=== PATIENT | male | born 1950 | race Caucasian/White ===

== ENCOUNTER 2016-10-12 08:37 | Emergency (ER) | payer MEDICARE, BC ==
--- NOTE | 2016-10-12 08:53 | ERNOTE ---
Back Pain ER HPI Presenting Symptoms: injury/pain to back Time Seen by Provider: 10/12/16 08:48 Source: patient Exam Limitations: no limitations Allergies/Adverse Reactions: Allergies No Known Allergies Allergy (Verified 10/12/16 09:08) Home Medications: HOME MEDICATIONS Acetaminophen [Tylenol] 1,300 mg PO BID 10/01/14 [Last Taken Unknown] Aspirin 325 mg PO DAILY 10/01/14 [Last Taken 10/12/16 0745] Diltiazem HCl [Cardizem Cd] 240 mg PO DAILY 10/01/14 [Last Taken 10/12/16 0745] traMADol HCL [Ultram] 50 mg PO QID PRN 10/01/14 [Last Taken 10/11/16] Cholecalciferol (Vitamin D3) [Vitamin D3] 2,000 unit PO DAILY 10/12/16 [Last Taken Unknown] Diazepam [Valium] 5 mg PO BID 10/12/16 [Last Taken 10/12/16 0200] Fenofibrate [Lofibra] 160 mg PO DAILY 10/12/16 [Last Taken Unknown] Methylprednisolone [Medrol Dosepak] 4 mg PO DAILY #21 tab.ds.pk 10/12/16 [Last Taken Unknown] Multivitamin [One Daily Essential] 1 each PO DAILY 10/12/16 [Last Taken Unknown] Narrative: back pain with left leg radiation x 1 week Timing: Reports: getting worse Quality/Severity: Reports: moderate Location of pain: Reports: lower back, radiating to lf thigh/leg Activities at Onset: Reports: none Recent Injury?: Reports: no Possible Precipitating Factor: Reports: none Modifying Factors - (Improves): Reports: supine position Modifying Factors - (Worsens): Reports: upright position, movement flexion Associated Symptoms: Denies: constipation/incontinence Review of Systems - Review of Systems Constitutional: Present: no symptoms reported EYE: Present: no symptoms reported ENT: Present: no symptoms reported Respiratory: Absent: shortness of breath Cardiology: Absent: chest pain Gastrointestinal/Abdominal: Absent: nausea, vomiting Genitourinary: Present: dysuria, other - no incontenence or retention Musculoskeletal: Present: back pain, muscle pain - left leg, joint pain - had knee pain 2 weeks ago and had joint injection Skin: Present: no symptoms reported Neurological: Absent: weakness, numbness, tingling Endocrine: Present: no symptoms reported Hematologic/Lymphatic: Present: no symptoms reported Psych: Present: no symptoms reported - Patient's Past Medical History Patient History - Medical: Other - back pain Patient History - Cardiac/Respiratory: Hypertension, Hyperlipidemia Patient History - Surgical Procedures: Back Surgery - L5-S1 fusion - Family History Father Family History - Medical: Family History - Cancer: Leukemia M other Family History - Medical: , Diabetes Type 2 Insulin Dependent Family History - Cardiac/Respiratory: Cardiac Arrest, Myocardial Infarction Physical Exam - Physical Exam General Appearance: Present: wd/wn, alert, mild distress Eye Exam: Normal inspection: bilateral Neck: Present: normal inspection, nontender, supple Respiratory: Present: no respiratory distress, no accessory muscle use Back Exam: Present: muscle spasm - LEFT, other - Left SI tenderness mild. Absent: vertebral tenderness Extremity Exam: Present: normal inspection, no edema Neurological Exam: Present: alert, oriented, normal mood/affect, no motor/ sensory deficits, other - SLR neg bilateral. Skin Exam: Present: normal color, warm/dry ED Progress - Results and Orders Patient's Lab Results:: I have reviewed the patient's lab results. Results and Orders: Laboratory Tests 10/12/16 10/12/16 10/12/16 09:15 09:15 09:15 WBC 8.6 Hgb 17.2 Hct 50.4 Plt Count 245 ESR 12 H C-Reactive Prot, Quant 0.2 - Vital Signs Patient's Vital Signs:: I have reviewed the patient's vital signs. - X-Ray X-Ray #1 X-Ray: lumbosacral - L5-S1 fusion hardware in good position/condition. Degenerative changes, nothin acute Interpretation: Reviewed by me - Progress/Reassessment Progress Note-Subjective: 10/12/16 11:11 Pt having diffculty getting up. ordered x ray and nubain. 10/12/16 11:40 improved with Nubain. Departure Clinical Impression: Sciatica Qualifiers: Laterality: left Qualified Code(s): M54.32 - Sciatica, left side - Departure Disposition: Home Follow Up Needed Condition: Fair Instructions: Sciatica, [id number] Additional Instructions: Take prescription as directed starting this afternoon. You may take ibuprofen as needed for pain. See your regular doctor for follow up within 5-7 days. Prescriptions: Methylprednisolone [Medrol Dosepak] 4 mg PO DAILY #21 tab.ds.pk
--- OUTSIDE RECORDS SUMMARY | 2016-10-12 08:53 | XMS REPORT | Continuity of Care Document ---
:1950 Author Organization [facility] ([facility]) Address [address] [place] [address] Phone [phone] Care Team Providers Name Role Phone Unavailable Primary Care Provider Unavailable Source Comments This disclosure is being made pursuant to the Care Everywhere program, applicable federal and state laws, and may not contain all informaitonavailable regarding this patient.[facility] ([facility]) Active Allergies and Adverse Reactions Not on File Current Medications Not on file Active Problems Not on file Social History Tobacco Use Types Packs/Day Years Used Date Never Assessed Plan of Care Health Maintenance Due Date Last Done Comments HCV Screening 1950 Hepatitis B Vaccine (1 of 3 - Primary Series) 1950 Tdap Vaccine 1963 Lipid Disorder Screening 1970 Td Vaccine 1970 Colonoscopy 2002 Prostate Cancer Screening 2002 Zoster Vaccine 2012 Influenza Vaccine: Seasonal (#1) 02/24/2016 Results from Last 3 Months Not on file
[2016-10-12 09:22] LABS: Hematocrit 50.4 % (42.0-52.0); Hemoglobin 17.2 gm/dL (13.5-18.0); Mean Cell Volume 84.3 fl (78-100); Mean Corpuscular Hemoglobin 28.8 pg (27-31); Mean Corpuscular Hgb Conc 34.1 g/dl (32-36); Mean Platelet Volume 9.5 fl (6.0-9.5); Neutrophil # 5.9 K/mm3 (1.3-6.0); Neutrophil % 68.2 % (42-75.0); Platelet Count 245 K/mm3 (150-450); Red Blood Count 5.98 M/mm3 (4.7-6.0); White Blood Count 8.6 K/mm3 (4.0-10.5)
[2016-10-12] MEDS ORDERED: METHYLPREDNISOLONE SOD SUCC/PF 125 MG/2 ML VIAL IV ONE (09:37)
[2016-10-12] MEDS ORDERED: METHYLPREDNISOLONE SOD SUCC/PF 40 MG/ML VIAL ONE (09:44)
[2016-10-12] MEDS ORDERED: ORPHENADRINE CITRATE 30 MG/ML VIAL IV ONE (10:26)
[2016-10-12 10:34] VITALS: BP 175/92
[2016-10-12] MEDS ORDERED: NALBUPHINE HCL 20 MG/ML AMPUL IV ONE (11:10)
== END 2016-10-12 12:30 | disposition home or self-care (01) ==
LOC: ER 08:37
DX: M54.32 Sciatica, left side (principal); I10 Essential (primary) hypertension; E78.5 Hyperlipidemia, unspecified

== ENCOUNTER 2016-11-30 07:25 | Inpatient (IN) | payer MEDICARE, BC ==
[~2016-11-30 07:25] MED LIST: MORPHINE SULFATE 15 MG TABLET.SA PO PRN; ROPIVACAINE HCL/PF 100 MG, KETOROLAC TROMETHAMINE 30 MG, EPINEPHrine 0.2 MG in NORMAL S... IJ PRN; TRANEXAMIC ACID 1,000 MG in NORMAL SALINE 100 ML IV PRN; ceFAZolin SODIUM 1 GM VIAL IV PRN
--- OUTSIDE RECORDS SUMMARY | 2016-11-30 07:30 | XMS REPORT | Continuity of Care Document ---
:1950 Author Organization [facility] ([facility]) Address [address] [place] [address] Phone [phone] Care Team Providers Name Role Phone Unavailable Primary Care Provider Unavailable Source Comments This disclosure is being made pursuant to the Care Everywhere program, applicable federal and state laws, and may not contain all informaitonavailable regarding this patient.[facility] ([facility]) Active Allergies and Adverse Reactions Not on [...]
--- NOTE | 2016-11-30 07:47 | PREOP NOTE ---
Preoperative Progress Note - Preoperative Changes Changes to Preop Condition?: No Changes
[2016-11-30] MEDS: RINGERS SOLUTION,LACTATED 1,000 ML IV PRN ×2 (08:22→10:25)
[2016-11-30] MEDS ORDERED: RINGERS SOLUTION,LACTATED 1,000 ML IV ONE (12:20)
[2016-11-30] MEDS ORDERED: diphenhydrAMINE HCL 50 MG/ML VIAL IV PRN (12:21)
[2016-11-30] MEDS ORDERED: ONDANSETRON HCL/PF 2 MG/ML VIAL IV PRN (12:21)
[2016-11-30] MEDS ORDERED: ZOLPIDEM TARTRATE 5 MG TABLET PO PRN (12:21)
[2016-11-30] MEDS ORDERED: HYDROmorphone HCL 1 MG/ML DISP.SYRIN IV PRN (12:21)
[2016-11-30] MEDS ORDERED: PROMETHAZINE HCL 5 MG in DEXTROSE 5 % IN WATER 50 ML IV PRN ×2 (12:21)
[2016-11-30] MEDS ORDERED: ACETAMINOPHEN 500 MG TABLET PO PRN (12:21)
[2016-11-30] MEDS ORDERED: oxyCODONE HCL/ACETAMINOPHEN 1 TAB TABLET PO PRN (12:21)
[2016-11-30] MEDS ORDERED: MAG HYDROX/ALUMINUM HYD/SIMETH 30 ML UDC PO PRN (12:21)
[2016-11-30] MEDS ORDERED: MAGNESIUM HYDROXIDE 30 ML UDC PO PRN (12:21)
--- NOTE | 2016-11-30 12:25 | OR ---
Operative Report - Dictated Report Narrative: Date: 11/30/2016 Preoperative diagnosis: Left Knee degenerative joint disease. Postoperative diagnosis: Left Knee degenerative joint disease. Procedure: Left Total knee arthroplasty. Surgeon: Lars Cobb M.D. Traffic Maintenance Supervisor: Joseluis Sibley PA-C Anesthesia: Spinal with regional block and local periarticular joint injection. Complications: None Specimens: Bone for disposal. Estimated blood loss: Minimal. Tourniquet time: 75 Minutes at 325 millimeters of mercury. Retained implants: Depuy Attune size 6 left lugged cemented posterior stabilized femoral component. Size 6 fixed-bearing cemented tibial platform. 6 by 5 millimeter posterior stabilized cross-linked tibial insert. 38 millimeter medialized patella button. Indications: Mr. Demarco is a 66-year-old gentleman who has had long-standing left knee pain. This patient was followed in my clinic for period of time with significant complaints of left knee pain consistent with arthritic changes. They had failed conservative measures including, but not limited to, activity modification, passage of time, medications, and other conservative measures. Patient wished to proceed with surgical treatment. The risks, benefits, and alternatives were discussed in clinic. The risks of , blood clots, bleeding, infection, nerve/tendon blood vessel/ injury, malposition of components, intraoperative fracture, postoperative limited range of motion, persistent pain, failure of components, and need for additional procedures. Patient wished to proceed consent was obtained after answering all questions. Procedure: After marking the correct extremity on the floor, the patient was taken to the operating room. A timeout was performed. IV antibiotics consisting of Ancef were administered prior to the procedure. A regional followed by spinal anesthetic was induced by anesthesia on the operative table with all bony prominences well-padded. Womack catheter was placed, and a bump was placed under the operative side buttock. SCDs and FRANCISCO hose were utilized on the nonoperative leg. A well-padded tourniquet was applied to the operative thigh. The operative leg was then pre-scrubbed with jacqui álvarez prepped, and draped in a standard sterile fashion. After exsanguinating the extremity with an Esmarch bandage, the tourniquet was inflated. After marking out the anterior knee for standard incision centered over the patella, the skin was incised and dissected down to the joint retinaculum. The joint retinaculum was marked out as well as the horizontal axis of the patella, and a standard medial parapatellar arthrotomy was then made. The most proximal aspect of the quadriceps tendon and the patella tendon insertion were protected from release. A partial synovectomy was performed as well as a resection of the infrapatellar fat pad. The distal femoral fat pad proximal to the trochlea was also resected using cautery. The soft tissues were elevated off the medial aspect of the proximal tibia using a Campbell elevator ensuring that we did not transect the medial collateral ligament. Upon initial evaluation range of motion was approximately 5 degrees to 110 degrees of flexion. There were signs of advanced arthrosis in the medial, lateral, and patellofemoral joint spaces. There were large marginal osteophytes which were removed with a rongeur. The knee was hyperflexed and the patella was tucked laterally. Protecting the surrounding soft tissues with Homans, an entry drill was placed down the femoral canal using Whitesides line for guidance into the entry point. The intramedullary femoral alignment kee was utilized in order to cut the distal femur in 5 degrees of valgus resecting 10 millimeters of bone. Next the distal femur was sized to a size 6. A posterior referencing guide was utilized to place the distal femoral cutting block in 3 degrees of external rotation. This was pinned into place. The rotation was confirmed both visually and based on anatomic landmarks. The 4 in 1 cutting jig of the appropriate size was utilized in order to make all bony cuts. The angle wing was used to ensure no notching. Retractors were utilized in order to protect surrounding soft tissues. This cut did not result in any excessive notching. We then cut the box centered over the distal femur. This allowed for resection of the anterior and posterior cruciate ligaments. I then turned my attention to the preparation of the tibia. Using an extra medullary tibial alignment kee, 4 millimeters of bone was resected off the medial articular surface. This was made perpendicular to the mechanical axis of the joint with the alignment kee centered over the ankle mortise. The alignment kee was checked and was noted to be parallel to the mechanical axis, centered over the medial one third of the tibial tubercle, paralleling the anterior surface of the tibia. We then turned our attention to the remaining meniscus and soft tissues. These were removed while protecting the surrounding ligaments and soft tissues. The marginal osteophytes off the anterior, posterior, medial, lateral aspects of the femur and tibia were removed. The tibia was sized out to a size 6. Next the tibia was drilled and punched in an externally rotated position. Next the trial femur and a series of tibial inserts were utilized in order to allow for full extension and maximal flexion. It was found that a 5 millimeter insert gave the best range of motion and stability at multiple flexion points as well as at full extension there was less than 2 mm of gapping both medially and laterally. There is minimal anterior translation with the knee at 90 degrees of flexion and no signs of being able to dislocate the knee. The patella was then prepared. The initial thickness was 25 millimeters. This was reamed down to 15 millimeters parallel to the anterior surface of the patella. It was sized out to a size 38 medialized patella button. This was then drilled and trialed. Without any medial restraint the patella tracked appropriately and did not sublux or dislocate. At this point, it was felt these were the appropriate sized implants, and all trials were removed. The standard periarticular joint injection consisting of ropivacaine, Toradol, and epinephrine were injected into the periarticular joint tissues. The bony surfaces were thoroughly irrigated with a pulsatile- suction saline irrigation device. A bone plug from the prior resected anterior chamfer cut was placed into the drill hole at the distal femur. The bony surfaces were then dried in preparation for placement of the implants. The cement was vacuum mixed per the surgery tech's instructions. The cement was placed on the dry bony surfaces and posterior aspect of the implants. The implants were impacted into place, removing all extruded cement. At this point anesthesia administered tranexamic acid per protocol intravenously. The knee was placed in extension with axial loading with the trial insert while the cement cured. Once the cement cured, all remaining extruded cement was removed. The knee was placed through a range of motion with the trial insert to ensure appropriate range of motion and stability. Final range of motion was approximately 0 to 120 degrees. The knee was again thoroughly irrigated with pulsatile saline lavage. The final polyethylene insert was then impacted into place ensuring no retained soft tissues. The remaining periarticular joint injection was injected. A medium Hemovac drain was placed exiting superior laterally. The knee was then placed over a triangle and the arthrotomy was closed with interrupted #1 Vicryl after thoroughly irrigating the joint. The deep and subcutaneous tissues were closed with interrupted oh and 3-0 Vicryl respectively. Skin was closed with a running subcutaneous 3-0 Monocryl and Prineo Dermabond dressing. 4 x 4's, ABD, Sof-Rol, and a full leg Rene wrap were applied. All sponge, needle, blade, and instrument counts were correct prior to closing the wounds. Postoperative condition: The patient was awoken and transferred to the postanesthesia care unit in stable condition. Plan is to be admitted to the inpatient medical/surgical floor postoperatively for 24 hours of IV antibiotics , physical therapy, occupational therapy, and medical comanagement. Patient will be weightbearing as tolerated with range of motion as tolerated. DVT prophylaxis will be with SCDs, FRANCISCO hose, and pharmacological anticoagulation. Anticipated hospital stay is approximately 2-4 days.
[2016-11-30] MEDS: DEXTROSE 5%-LACTATED RINGERS 1,000 ML IV PRN ×2 (13:29→21:41)
[2016-11-30] MEDS: KETOROLAC TROMETHAMINE 15 MG/ML VIAL IV SCH ×2 (13:30→17:56)
[2016-11-30] MEDS: CHOLECALCIFEROL 5,000 UNIT TABLET PO SCH (13:33)
[2016-11-30] MEDS: ceFAZolin SODIUM 1 GM in DEXTROSE 5 % IN WATER 100 ML IV SCH ×4 (14:25→21:42)
[2016-11-30] MEDS: MORPHINE SULFATE 15 MG TABLET.SA PO SCH (21:44)
[2016-11-30] MEDS: SENNOSIDES/DOCUSATE SODIUM 1 TAB TABLET PO SCH (21:44)
[2016-11-30] MEDS: DIAZEPAM 5 MG TABLET PO SCH (21:44)
[2016-12-01] MEDS: ceFAZolin SODIUM 1 GM in DEXTROSE 5 % IN WATER 100 ML IV SCH ×2 (01:22)
[2016-12-01] MEDS: KETOROLAC TROMETHAMINE 15 MG/ML VIAL IV SCH ×5 (01:22→23:44)
[2016-12-01 05:50] LABS: Hematocrit 37.5 % (42.0-52.0); Hemoglobin 12.8 gm/dL (13.5-18.0); Mean Cell Volume 84.8 fl (78-100); Mean Corpuscular Hgb Conc 34.1 g/dl (32-36); Mean Platelet Volume 10.1 fl (6.0-9.5); Platelet Count 216 K/mm3 (150-450); Red Blood Count 4.42 M/mm3 (4.7-6.0); Red Cell Distribution Width 14.7 % (11.5-14.0)
[2016-12-01 06:04] LABS: Anion Gap 13.5 mmol/L (6.8-13.8); BUN/Creatinine Ratio 13.1 (9.0-21.6); Calcium * 8.5 mg/dL (7.9-10.9); Carbon Dioxide 23.4 mmol/L (24-32.6); Estimated Creat Clear 85.1; Potassium 3.9 mmol/L (3.4-4.6)
--- NOTE | 2016-12-01 07:04 | PN ---
Subjective - Date and Time Seen Date: 12/01/16 Time: 06:57 Subjective Narrative: Pt. complaint of LBP and not being able to get into a comfortable position for sleep last night. He denies CP/SOB/N/V or pain in his knee. Objective Objective Narrative: It was noted last pm that his HR was into the 40's, BP's in the 120's so diltiazem was held. - Review of Systems Generalized/Overall Review: Denies: Weakness, Chills, Fever EENTM: Reports: No Symptoms Reported Respiratory: Reports: No Symptoms Reported Cardiac: Reports: No Symptoms Reported Abdominal: Reports: No Symptoms Reported Genitourinary Symptoms: Reports: No Symptoms Reported Musculoskeletal Complaints: Reports: Back Pain. Denies: Joint Pain Neurological: Denies: Numbness, Parasthesia, Tingling Skin: Reports: No Symptoms Reported Endocrine: Reports: No Symptoms Reported - Vitals Vitals: Last Vital Signs Temp 36.6 C 11/30/16 23:00 Pulse 53 L 12/01/16 03:30 Resp 16 12/01/16 03:30 BP 149/74 12/01/16 03:30 Pulse Ox 96 12/01/16 03:30 - Abnormal Lab Findings Abnormal Lab Findings: Abnormal Lab Results 12/01/16 12/01/16 Range/Units 05:30 05:30 RBC 4.42 L (4.7-6.0) M/mm3 Hgb 12.8 L (13.5-18.0) gm/dL Hct 37.5 L (42.0-52.0) % RDW 14.7 H (11.5-14.0) % MPV 10.1 H (6.0-9.5) fl Plasma Sodium 143 H (130-142) mmol/L Chloride 109 H (97-106) mmol/L Carbon Dioxide 23.4 L (24-32.6) mmol/L Random Glucose 148 H (70-110) mg/dL - Exam Constitutional: Present: Alert, Oriented x3, Cooperative, Mild distress, Other - in some distress, wearing CPAP, Obese ENT Exam: Present: hearing grossly normal Neck: Present: supple Respiratory: Present: lungs clear, normal breath sounds, no respiratory distress , no accessory muscle use Cardiovascular/Chest: Present: regular rate, rhythm, no murmur Abdomen: Present: Normal bowel sounds, soft, nontender, nondistended, no rebound tenderness, no hepatospenomegaly Extremity: Present: no calf tenderness, normal capillary refill Skin Exam: Present: normal color Neurologic: Present: normal mood/affect, oriented x 3 Appearance: Present: appropriate appearance, appropriate insight Eye contact: Present: cooperative, good eye contact, normal speech Thoughts: Present: normal thought pattern, no apparent hallucination Cauti Physician Documentation - Urinary Catheter Management Urethral (Womack) Urethral Indwelling: Yes Date of Insertion: 11/30/16 Time of Insertion: 11:00 Assessment/Plan - Problems/Diagnosis (1) Hypertension Problem: Acute Qualifiers: Hypertension type: essential hypertension Qualified Code(s): I10 - Essential (primary) hypertension Narrative: BP's have been in the 120's except for last PM pressures into the 190's and 150' s this am, but pt. complaining of back pain. will monitor throughout the day. Possibly restart diltiazem at 120mg and add lisinopril 10mg to regimen if needed. (2) Bradycardia Problem: Acute Narrative: appears to be improving. HR in the 60 range this am. will continue to monitor. IF continues to be bradycardic with consider change from diltiazem to lisinopril. (3) S/P total knee arthroplasty Problem: Acute Qualifiers: Laterality: left Qualified Code(s): Z96.652 - Presence of left artificial knee joint Narrative: rehab and post op orders per ortho/PT
--- NOTE | 2016-12-01 08:03 | PN ---
Subjective - Date and Time Seen Date: 12/01/16 Time: 07:59 Subjective Narrative: Subjective: Reports no concerns. Was able to get to the chair with therapy. Pain is well-controlled. Voiding without any complications. Tolerating by mouth intake. Denies any nausea or vomiting. Denies calf pain. Slept well. Physical exam: Alert and oriented to person, place and time Left lower Extremity: Palpable dorsalis pedis pulse. Sensation grossly intact to light touch. Dressings clean dry. Able to flex and extend ankle and toes. No excessive drainage. Calf and thigh are soft and nontender. Assessment: Postop day 1 status post left total knee arthroplasty. Plan: Continue with physical and occupational therapy weightbearing as tolerated. Continue with anticoagulation. 24 hours postoperative prophylactic antibiotics. Pain control with goal to rely on oral medications. Continue bowel regimen. Will need 6 weeks with walker or assitive device to protect joint while ambulating during the recovery process. Discharge planning. Discontinue drain and Womack catheter. Repeat labs in a.m. Objective - Vitals Vitals: Last Vital Signs Temp 36.6 C 11/30/16 23:00 Pulse 53 L 12/01/16 03:30 Resp 16 12/01/16 03:30 BP 149/74 12/01/16 03:30 Pulse Ox 96 12/01/16 03:30 - Abnormal Lab Findings Abnormal Lab Findings: Abnormal Lab Results 12/01/16 12/01/16 Range/Units 05:30 05:30 RBC 4.42 L (4.7-6.0) M/mm3 Hgb 12.8 L (13.5-18.0) gm/dL Hct 37.5 L (42.0-52.0) % RDW 14.7 H (11.5-14.0) % MPV 10.1 H (6.0-9.5) fl Plasma Sodium 143 H (130-142) mmol/L Chloride 109 H (97-106) mmol/L Carbon Dioxide 23.4 L (24-32.6) mmol/L Random Glucose 148 H (70-110) mg/dL - Exam Constitutional: Present: Alert, Oriented x3 Cauti Physician Documentation - Urinary Catheter Management Urethral (Womack) Urethral Indwelling: Yes Date of Insertion: 11/30/16 Time of Insertion: 11:00 Assessment/Plan - Problems/Diagnosis (1) Acute blood loss anemia Problem: Acute (2) Bradycardia Problem: Acute (3) Hypertension Problem: Chronic Qualifiers: Hypertension type: essential hypertension Qualified Code(s): I10 - Essential (primary) hypertension (4) S/P total knee arthroplasty Problem: Acute Qualifiers: Laterality: left Qualified Code(s): Z96.652 - Presence of left artificial knee joint (5) Atrial fibrillation Problem: Chronic (6) AV block Problem: Chronic (7) CHF (congestive heart failure) Problem: Chronic (8) Hyperlipemia Problem: Chronic (9) Pulmonary hypertension Problem: Chronic
[2016-12-01] MEDS ORDERED: DILTIAZEM HCL 240 MG CAP.SR.24H PO SCH (09:00)
[2016-12-01] MEDS: VITAMIN B COMP W-C 1 TAB TABLET PO SCH (09:11)
[2016-12-01] MEDS: OMEGA-3 FATTY ACIDS 1 CAP CAPSULE PO SCH (09:11)
[2016-12-01] MEDS: MORPHINE SULFATE 15 MG TABLET.SA PO SCH ×2 (09:11→20:09)
[2016-12-01] MEDS: FENOFIBRATE,MICRONIZED 134 MG CAPSULE PO SCH (09:11)
[2016-12-01] MEDS: MULTIVITAMINS 1 CAP CAPSULE PO SCH (09:11)
[2016-12-01] MEDS: DIAZEPAM 5 MG TABLET PO SCH ×2 (09:14→20:11)
[2016-12-01] MEDS: ENOXAPARIN SODIUM 40 MG/0.4 ML SYRG SC SCH (12:12)
[2016-12-01] MEDS: LISINOPRIL 10 MG TABLET PO SCH (15:23)
[2016-12-01] MEDS: SENNOSIDES/DOCUSATE SODIUM 1 TAB TABLET PO SCH (20:09)
[2016-12-02] MEDS: KETOROLAC TROMETHAMINE 15 MG/ML VIAL IV SCH (05:43)
[2016-12-02 05:52] LABS: Hematocrit 39.8 % (42.0-52.0); Hemoglobin 13.8 gm/dL (13.5-18.0); Mean Cell Volume 83.8 fl (78-100); Mean Corpuscular Hemoglobin 29.1 pg (27-31); Mean Corpuscular Hgb Conc 34.7 g/dl (32-36); Mean Platelet Volume 10.3 fl (6.0-9.5); Platelet Count 223 K/mm3 (150-450); Red Blood Count 4.75 M/mm3 (4.7-6.0); Red Cell Distribution Width 14.4 % (11.5-14.0); White Blood Count 8.3 K/mm3 (4.0-10.5)
[2016-12-02 05:55] LABS: Anion Gap 15.8 mmol/L (6.8-13.8); BUN/Creatinine Ratio 16.3 (9.0-21.6); Estimated Creat Clear 87.2; Potassium 3.8 mmol/L (3.4-4.6)
--- NOTE | 2016-12-02 08:17 | PN ---
Subjective - Date and Time Seen Date: 12/02/16 Time: 08:14 Subjective Narrative: states some increased pain in his left knee today, but not terrible. Denies CP/ SOB. some light headedness when standing. Objective - Review of Systems Generalized/Overall Review: Reports: No Symptoms Reported EENTM: Reports: No Symptoms Reported Respiratory: Reports: No Symptoms Reported Cardiac: Reports: No Symptoms Reported Abdominal: Reports: No Symptoms Reported Genitourinary Symptoms: Reports: No Symptoms Reported Musculoskeletal Complaints: Reports: Joint Pain, Back Pain Neurological: Reports: No Symptoms Reported Skin: Reports: No Symptoms Reported Endocrine: Reports: No Symptoms Reported - Vitals Vitals: Last Vital Signs Temp 36.4 C L 12/02/16 07:19 Pulse 82 12/02/16 07:19 Resp 16 12/02/16 07:19 BP 168/88 12/02/16 07:19 Pulse Ox 98 12/02/16 07:19 - Abnormal Lab Findings Abnormal Lab Findings: Abnormal Lab Results 12/02/16 12/02/16 Range/Units 05:31 05:31 Hct 39.8 L (42.0-52.0) % RDW 14.4 H (11.5-14.0) % MPV 10.3 H (6.0-9.5) fl Anion Gap 15.8 H (6.8-13.8) mmol/L Random Glucose 122 H (70-110) mg/dL - Exam Constitutional: Present: Alert, Oriented x3, Cooperative, Mild distress, Obese ENT Exam: Present: hearing grossly normal Neck: Present: supple Respiratory: Present: lungs clear, normal breath sounds, no respiratory distress , no accessory muscle use Cardiovascular/Chest: Present: regular rate, rhythm, no murmur Abdomen: Present: Normal bowel sounds, soft, nontender, nondistended, obese Extremity: Present: normal capillary refill Skin Exam: Present: normal color Neurologic: Present: normal mood/affect, oriented x 3 Appearance: Present: appropriate appearance, appropriate insight, neat Eye contact: Present: cooperative, good eye contact, normal speech Thoughts: Present: normal thought pattern, no apparent hallucination Cauti Physician Documentation - Urinary Catheter Management Urethral (Womack) Urethral Indwelling: No Date of Insertion: 11/30/16 Time of Insertion: 11:00 Date of Removal: 12/01/16 Time of Removal: 06:40 Assessment/Plan - Problems/Diagnosis (1) Hypertension Problem: Chronic Qualifiers: Hypertension type: essential hypertension Qualified Code(s): I10 - Essential (primary) hypertension Narrative: BP's starting to increase. started lisinopril yesterday. HR also increasing so will restart diltiazem, but at 180mg instead of the 240mg as before. (2) Bradycardia Problem: Resolved (3) S/P total knee arthroplasty Problem: Acute Qualifiers: Laterality: left Qualified Code(s): Z96.652 - Presence of left artificial knee joint Narrative: PT/post op per ortho. pain appears to be controlled, even though pt. stated it hurt more today this is normal post op course.
[2016-12-02] MEDS: FENOFIBRATE,MICRONIZED 134 MG CAPSULE PO SCH (08:37)
[2016-12-02] MEDS: LISINOPRIL 10 MG TABLET PO SCH (08:38)
[2016-12-02] MEDS: OMEGA-3 FATTY ACIDS 1 CAP CAPSULE PO SCH (08:38)
[2016-12-02] MEDS: MORPHINE SULFATE 15 MG TABLET.SA PO SCH (08:38)
[2016-12-02] MEDS: MULTIVITAMINS 1 CAP CAPSULE PO SCH (08:38)
[2016-12-02] MEDS: VITAMIN B COMP W-C 1 TAB TABLET PO SCH (08:38)
[2016-12-02] MEDS: DIAZEPAM 5 MG TABLET PO SCH (08:43)
[2016-12-02] MEDS ORDERED: DILTIAZEM HCL 240 MG CAP.SR.24H PO SCH (09:00)
[2016-12-02] MEDS ORDERED: DILTIAZEM HCL 180 MG CAP.SR.24H PO SCH (09:00)
--- NOTE | 2016-12-02 09:55 | DS ---
(1) Acute blood loss anemia Problem: Acute (2) Bradycardia Problem: Resolved (3) Hypertension Problem: Chronic Qualifiers: Hypertension type: essential hypertension Qualified Code(s): I10 - Essential (primary) hypertension (4) S/P total knee arthroplasty Problem: Acute Qualifiers: Laterality: left Qualified Code(s): Z96.652 - Presence of left artificial knee joint (5) Atrial fibrillation Problem: Chronic (6) AV block Problem: Chronic (7) CHF (congestive heart failure) Problem: Chronic (8) Hyperlipemia Problem: Chronic (9) Pulmonary hypertension Problem: Chronic Description of Stay: Mr. Demarco was admitted to the floor after undergoing left total knee arthroplasty. Tolerated this well. Was admitted to the floor postoperatively for 24 hours of IV antibiotics, pain control, medical comanagement, and occupational and physical therapy. OT and PT were consulted to assist with activities of daily living and ambulation. Was made weightbearing as tolerated with range of motion as tolerated. Pain was initially controlled with IV regimen. This was transitioned to oral once tolerating a by mouth intake. Was resumed on home diet and medications. Had a Womack catheter inserted and the operating room which was discontinued on postoperative day 1. A drain was placed intraoperatively into the knee which was discontinued on postoperative day 1. Lovenox SCD and FRANCISCO hose were utilized for DVT prophylaxis. Vital signs remained stable to the hospital course. Serial labs were obtained which showed a final hemoglobin of 13.8 grams. BMP was reviewed and was stable. Physical examination throughout the hospital course showed an extremity that had sensation that was intact to light touch, palpable pulses, a benign wound, motor intact to the toes, ankle, and knee. Knee range of motion was approximately 0 degrees to 60 degrees. Once an oral pain regimen was tolerated and physical therapy goals were met, it was felt that they were stable for discharge to home. Instructions: Continue with weightbearing as tolerated and range of motion as tolerated. Okay to shower as long as the wound is not draining. If the wound is draining he should cover with dry gauze and tape. Change every 2-3 days as needed. Continue with physical therapy. Resume home diet. Report any fever over 101.5 Fahrenheit, uncontrolled pain, increased drainage, foul odor of drainage, new or increased calf pain or shortness of breath, or any other significant complaints. A 325mg dialy aspirin will be started after finishing anticoagulation if not allergic. Continue with FRANCISCO hose on the operative extremity until instructed otherwise. No driving until instructed otherwise. Follow up in approximately 10-14 days. Procedures Performed: see notes below List Procedures: Left total knee arthroplasty Discharge Disposition: Home self care Disposition: Home self-care Condition: Good Discharge Activity: Activity as tolerated, Weight bearing Discharge Diet: General/regular food Long-Term Therapy: Physicial Therapy Additional Patient Instructions (free text): Outpatient Physical Therapy at [facility] on WednesdayDecember 04 at 9:30. Follow-up in the office with Dr. Cobb on 12-15-16@10:45am. Prescriptions (Any new or edited meds): Enoxaparin Sodium [Lovenox] 40 mg SC Q24H #7 disp.syrin Morphine Sulfate [Ms Contin] 15 mg PO Q12H #20 tablet.sa oxyCODONE HCL/ACETAMINOPHEN [Percocet 5 MG/325 MG] 2 tab PO Q4H PRN #90 tablet PRN Reason: Moderate Pain Complete Home Medications List: Complete Home Medication List: Aspirin 325 mg PO DAILY 10/01/14 Diltiazem HCl [Cardizem Cd] 240 mg PO DAILY 10/01/14 Cholecalciferol (Vitamin D3) [Vitamin D3] 5,000 unit PO MOWEFRSA 10/12/16 Diazepam [Valium] 5 mg PO BID 10/12/16 Fenofibrate Nanocrystallized [Tricor] 145 mg PO DAILY 11/04/16 Ibuprofen [Motrin] 800 mg PO Q8H PRN 11/04/16 Multivitamins [Multivitamin Mildred] 1 cap PO DAILY 11/04/16 [place]-3S/Dha/Epa/Fish Oil [[place]-3 Fish Oil 1,000 mg Sfgl] 2 each PO DAILY 11/04 Vitamin B Complex 1 each PO DAILY 11/04/16 Enoxaparin Sodium [Lovenox] 40 mg SC Q24H #7 disp.syrin 12/02/16 Lisinopril [Zestril] 10 mg PO DAILY tablet 12/02/16 Morphine Sulfate [Ms Contin] 15 mg PO Q12H #20 tablet.sa 12/02/16 Sennosides/Docusate Sodium [Senokot-S] 2 tab PO HS tablet 12/02/16 oxyCODONE HCL/ACETAMINOPHEN [Percocet 5 MG/325 MG] 2 tab PO Q4H PRN #90 tablet 12/02/16
[2016-12-02 10:46] VITALS: BP 149/93
[2016-12-02] MEDS: ENOXAPARIN SODIUM 40 MG/0.4 ML SYRG SC SCH (10:47)
[2016-12-02] MEDS: CHOLECALCIFEROL 5,000 UNIT TABLET PO SCH (13:24)
== END 2016-12-02 14:56 | disposition home or self-care (01) | DRG 470 ==
LOC: MS 07:25
PROVIDERS: ADMIT Orthopaedic Surgery; ATTEND Orthopaedic Surgery
PROC: 0SRD0J9 Replacement of Left Knee Joint with Synthetic Substitute, Cemented, Open Approach (ICD-10-PCS; principal; 2016-11-30 11:30)
DX: M17.0 Bilateral primary osteoarthritis of knee (principal); D62 Acute posthemorrhagic anemia; I10 Essential (primary) hypertension; I48.2 Chronic atrial fibrillation; E78.5 Hyperlipidemia, unspecified; I27.2 Other secondary pulmonary hypertension; Z87.891 Personal history of nicotine dependence; Z79.82 Long term (current) use of aspirin